=== PATIENT | male | born 1985 | race Two or more races ===

== ENCOUNTER 2020-03-16 16:49 | Emergency (ER) | payer MEDICAID, OTHER ==
[~2020-03-16] VITALS: Ht 167.6 cm; Wt 81.6 kg
[2020-03-16] MEDS ORDERED: TETANUS-DIPTH-ACEL PERTUSSIS 0.5ML SYR Tdap IM ONE (20:45)
[2020-03-16 21:01] VITALS: BP 136/76
== END 2020-03-16 21:16 ==
LOC: EEVIPCON 16:49 → EDBD 16:49 → ER 16:49
DX: S02.2XXA Fracture of nasal bones, initial encounter for closed fracture (principal); S02.32XA Fracture of orbital floor, left side, initial encounter for closed fracture; Y08.89XA Assault by other specified means, initial encounter; Y93.89 Activity, other specified; Y92.89 Other specified places as the place of occurrence of the external cause; Y99.8 Other external cause status
CPT/HCPCS: 70450; 70486; 71250; 72125; 73090; 90471; 90715